=== PATIENT | female | born 1965 | race Caucasian/White ===

== ENCOUNTER 2022-03-27 15:58 | Emergency (ER) | payer OTHER, BC ==
[2022-03-27] MEDS ORDERED: ACETAMINOPHEN 325 MG TABLET ONE (16:48)
[2022-03-27] MEDS ORDERED: LORAZEPAM 1 MG TABLET ONE (16:48)
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
[2022-03-27 19:12] VITALS: BP 146/98; TEMP 98.1; O2SAT 100
== END 2022-03-27 19:01 | disposition home or self-care (01) ==
LOC: ER 15:58
DX: M54.2 Cervicalgia (principal); V49.50XA Passenger injured in collision with unspecified motor vehicles in traffic accident, initial encounter; Z85.3 Personal history of malignant neoplasm of breast
CPT/HCPCS: 70450; 72125; 99284